=== PATIENT | male | born 1950 | race Caucasian/White ===

== ENCOUNTER 2020-10-09 06:00 | Outpatient (RCR) | payer MEDICARE, SELFPAY | END 2020-10-19 23:59 | disposition home or self-care (01) | LOC: GPT 06:00 | PROVIDERS: PCP Family Medicine; Referring Provider Internal Medicine; Visit Provider Internal Medicine | DX: S42.351D Displaced comminuted fracture of shaft of humerus, right arm, subsequent encounter for fracture with routine healing (principal); X58.XXXD Exposure to other specified factors, subsequent encounter | CPT/HCPCS: 97032; 97110; 97162; 97530 ==

== ENCOUNTER 2020-10-20 06:00 | Outpatient (RCR) | payer MEDICARE, SELFPAY | END 2020-11-19 23:59 | disposition home or self-care (01) | LOC: GPT 06:00 | PROVIDERS: PCP Family Medicine; Referring Provider Internal Medicine; Visit Provider Internal Medicine | DX: G83.21 Monoplegia of upper limb affecting right dominant side (principal) | CPT/HCPCS: 97032; 97110; 97140; 97164; 97530; G0283 ==

== ENCOUNTER 2020-10-21 06:00 | Outpatient (RCR) | payer MEDICARE, SELFPAY | END 2020-11-19 23:59 | disposition home or self-care (01) | LOC: GOT 06:00 | PROVIDERS: PCP Family Medicine; Referring Provider Internal Medicine; Visit Provider Internal Medicine | DX: G83.21 Monoplegia of upper limb affecting right dominant side (principal) | CPT/HCPCS: 97032; 97110; 97112; 97140; 97167; 97760 ==

== ENCOUNTER 2021-02-10 06:00 | Outpatient (RCR) | payer MEDICARE, SELFPAY | END 2021-02-18 23:59 | disposition home or self-care (01) | LOC: GPT 06:00 | PROVIDERS: PCP Family Medicine; Referring Provider Internal Medicine; Visit Provider Internal Medicine | DX: G83.21 Monoplegia of upper limb affecting right dominant side (principal) | CPT/HCPCS: 97110 ==

== ENCOUNTER 2021-02-11 06:00 | Outpatient (RCR) | payer MEDICARE, SELFPAY | END 2021-02-18 23:59 | disposition home or self-care (01) | LOC: GOT 06:00 | PROVIDERS: PCP Family Medicine; Visit Provider Orthopaedic Surgery | DX: G56.31 Lesion of radial nerve, right upper limb (principal); S62.102S Fracture of unspecified carpal bone, left wrist, sequela; S42.354D Nondisplaced comminuted fracture of shaft of humerus, right arm, subsequent encounter for fracture with routine healing | CPT/HCPCS: 97032; 97110; 97166 ==

== ENCOUNTER 2021-02-19 06:00 | Outpatient (RCR) | payer MEDICARE, SELFPAY | END 2021-03-21 23:59 | disposition home or self-care (01) | LOC: GOT 06:00 | PROVIDERS: PCP Family Medicine; Visit Provider Orthopaedic Surgery | DX: S62.102S Fracture of unspecified carpal bone, left wrist, sequela (principal); S42.354D Nondisplaced comminuted fracture of shaft of humerus, right arm, subsequent encounter for fracture with routine healing; G56.31 Lesion of radial nerve, right upper limb; X58.XXXS Exposure to other specified factors, sequela; X58.XXXD Exposure to other specified factors, subsequent encounter | CPT/HCPCS: 97110; 97140 ==

== ENCOUNTER 2021-02-19 06:00 | Outpatient (RCR) | payer MEDICARE, SELFPAY | END 2021-03-21 23:59 | disposition home or self-care (01) | LOC: GPT 06:00 | PROVIDERS: PCP Family Medicine; Referring Provider Internal Medicine; Visit Provider Internal Medicine | DX: G83.21 Monoplegia of upper limb affecting right dominant side (principal) | CPT/HCPCS: 97110; 97140 ==

== ENCOUNTER 2021-03-22 06:00 | Outpatient (RCR) | payer MEDICARE, SELFPAY | END 2021-04-21 23:59 | disposition home or self-care (01) | LOC: GOT 06:00 | PROVIDERS: PCP Family Medicine; Visit Provider Orthopaedic Surgery | DX: G56.31 Lesion of radial nerve, right upper limb (principal); S62.102D Fracture of unspecified carpal bone, left wrist, subsequent encounter for fracture with routine healing; S42.354D Nondisplaced comminuted fracture of shaft of humerus, right arm, subsequent encounter for fracture with routine healing; M25.511 Pain in right shoulder; G89.29 Other chronic pain; M75.01 Adhesive capsulitis of right shoulder | CPT/HCPCS: 97110; 97140 ==

== ENCOUNTER 2021-03-22 06:00 | Outpatient (RCR) | payer MEDICARE, SELFPAY | END 2021-04-21 23:59 | disposition home or self-care (01) | LOC: GPT 06:00 | PROVIDERS: PCP Family Medicine; Referring Provider Internal Medicine; Visit Provider Internal Medicine | DX: M25.511 Pain in right shoulder (principal); G89.29 Other chronic pain; M75.01 Adhesive capsulitis of right shoulder | CPT/HCPCS: 97110; 97140 ==

== ENCOUNTER 2021-04-22 06:00 | Outpatient (RCR) | payer MEDICARE, SELFPAY | END 2021-05-19 23:59 | disposition home or self-care (01) | LOC: GPT 06:00 | PROVIDERS: PCP Family Medicine; Visit Provider Internal Medicine | DX: M25.511 Pain in right shoulder (principal); G89.29 Other chronic pain; M75.01 Adhesive capsulitis of right shoulder | CPT/HCPCS: 97110; 97140 ==

== ENCOUNTER 2021-04-22 06:00 | Outpatient (RCR) | payer MEDICARE, SELFPAY | END 2021-05-19 23:59 | disposition home or self-care (01) | LOC: GOT 06:00 | PROVIDERS: PCP Family Medicine; Visit Provider Orthopaedic Surgery | DX: S62.102S Fracture of unspecified carpal bone, left wrist, sequela (principal); S42.354D Nondisplaced comminuted fracture of shaft of humerus, right arm, subsequent encounter for fracture with routine healing; G56.31 Lesion of radial nerve, right upper limb | CPT/HCPCS: 97035; 97110; 97140 ==

== ENCOUNTER 2021-05-20 06:00 | Outpatient (RCR) | payer MEDICARE, SELFPAY | END 2021-06-19 23:59 | disposition home or self-care (01) | LOC: GOT 06:00 | PROVIDERS: PCP Family Medicine; Visit Provider Orthopaedic Surgery | DX: S62.102D Fracture of unspecified carpal bone, left wrist, subsequent encounter for fracture with routine healing (principal); S42.354D Nondisplaced comminuted fracture of shaft of humerus, right arm, subsequent encounter for fracture with routine healing; G56.31 Lesion of radial nerve, right upper limb; X58.XXXD Exposure to other specified factors, subsequent encounter | CPT/HCPCS: 97032; 97110; 97140 ==

== ENCOUNTER 2021-05-20 06:00 | Outpatient (RCR) | payer MEDICARE, SELFPAY | END 2021-06-19 23:59 | disposition home or self-care (01) | LOC: GPT 06:00 | PROVIDERS: PCP Family Medicine; Visit Provider Internal Medicine | DX: M25.511 Pain in right shoulder (principal); G89.29 Other chronic pain; M75.01 Adhesive capsulitis of right shoulder | CPT/HCPCS: 97110; 97140 ==

== ENCOUNTER 2021-06-20 06:00 | Outpatient (RCR) | payer MEDICARE, SELFPAY | END 2021-06-24 23:59 | disposition home or self-care (01) | LOC: GOT 06:00 | PROVIDERS: PCP Family Medicine; Visit Provider Orthopaedic Surgery | DX: S62.102S Fracture of unspecified carpal bone, left wrist, sequela (principal); G56.31 Lesion of radial nerve, right upper limb; S42.354D Nondisplaced comminuted fracture of shaft of humerus, right arm, subsequent encounter for fracture with routine healing; X58.XXXD Exposure to other specified factors, subsequent encounter; X58.XXXS Exposure to other specified factors, sequela | CPT/HCPCS: 97110; 97140 ==

== ENCOUNTER 2024-02-25 06:00 | Outpatient (RCR) | payer MEDICARE, SELFPAY | END 2024-03-21 23:59 | disposition home or self-care (01) | LOC: GPT 06:00 | PROVIDERS: PCP Nurse Practitioner; Visit Provider Orthopaedic Surgery | DX: M54.31 Sciatica, right side (principal); M25.551 Pain in right hip | CPT/HCPCS: 97110; 97140; 97161; 97530 ==

== ENCOUNTER 2024-03-02 12:02 | Outpatient (CLI) | payer MEDICARE, SELFPAY ==
--- NOTE | 2024-03-02 12:11 | XRR_ITS ---
PROCEDURE INFORMATION: Exam: XR Lumbosacral Spine Exam date and time: 03/02/2024 12:18 PM Age: 73 years old Clinical indication: Injury or trauma; Blunt trauma (contusions or hematomas); Injury date: 1 month ago; Injury details: Sciatic nerve operation in 2020, fall x1 month sharp shooting pain down right leg; Prior surgery; Surgery date: 6+ months; Additional info: Lumbar back pain w/radiculopathy to rle TECHNIQUE: Imaging protocol: Radiologic exam of the lumbosacral spine. Views: 6 or more views. Including flexion and extension views. COMPARISON: No relevant prior studies available. FINDINGS: Bones/joints: Mild broad-based convex right lumbar scoliosis. Intact posterolateral/interbody fusion at L4-L5 intact posterolateral fusion at T12-L1. Spinal alignment is normal. Moderate to severe T12 compression fracture partially obscured by position. Question T11 compression fracture, also obscured. There are confluent anterior vertebral osteophytes above L2. There is moderate multilevel lumbar disc degeneration. There is moderate multilevel facet spondylosis. No acute fracture. No spondylolisthesis with flexion or extension. Mild narrowing of the posterior disc space and widening of the anterior disc space with extension at L5-S1. Soft tissues: Visible soft tissues are unremarkable. XR/XR lumbar spine 6V w f/e [id number] IMPRESSION: 1. Diffuse lumbar disc and facet degeneration with intact multilevel hardware fusion. 2. Age-indeterminate T11 and T12 compression fractures.
== END 2024-03-02 12:03 | disposition home or self-care (01) ==
LOC: RAD 12:06
PROVIDERS: PCP Nurse Practitioner; Visit Provider Nurse Practitioner
DX: M54.16 Radiculopathy, lumbar region (principal); M41.86 Other forms of scoliosis, lumbar region; M43.26 Fusion of spine, lumbar region; S22.080A Wedge compression fracture of T11-T12 vertebra, initial encounter for closed fracture; M25.78 Osteophyte, vertebrae; M51.360 Other intervertebral disc degeneration, lumbar region with discogenic back pain only; X58.XXXA Exposure to other specified factors, initial encounter
CPT/HCPCS: 72114

== ENCOUNTER 2024-03-10 09:41 | Outpatient (CLI) | payer MEDICARE, SELFPAY ==
--- NOTE | 2024-03-10 09:50 | MR_ITS ---
WS: [id number] MRI THORACIC SPINE noncontrast HISTORY: COMPRESSION FRACTURE OF T12 COMPARISON: None available. TECHNIQUE: Multiplanar sequences are performed in sagittal and axial planes. Long RIGHT curvature tho racic spine. Marked increase in thoracic kyphosis. Prior posterior lumbar fusion at T11-12. 50% anter ior wedging of T12. 20% anterior wedging of T11. There is mild anterior wedging also LEFT T8 and T9. No marrow edema is noted in the vertebral bodies. No acute compression fracture. There is a focal kyp hosis at the T11-12 level. T1-2: Mild foraminal narrowing. T2-3: Facet arthritis and mild foraminal narrowing. T3-4: Moderate bilateral facet arthritis and moderate foraminal stenosis. T4-5: Bilateral facet joint arthritis and foraminal stenosis. T5-6: Bilateral facet arthritis, RIGHT greater than LEFT. Moderate foraminal stenosis. T6-7: Bilateral foraminal stenosis and facet arthritis. T7-8: Severe bilateral foraminal stenosis. T8-9: Facet arthritis and severe bilateral foraminal stenosis. T9-10: Moderate bilateral foraminal stenosis and facet arthritis. T10-11: Moderate bilateral foraminal stenosis and facet arthritis. Small central disc protrusion. T11-12: Moderate central disc protrusion or osteophyte encroaching on the thecal sac. Near effacement of CSF. Bilateral foraminal stenosis. MR/MR thoracic spin wo con* [id number] IMPRESSION: 1. Prior posterior thoracic fusion at T11-12. Focal kyphosis at this level. 2. No new acute thoracic spine fracture. No marrow edema. 3. Long curvature RIGHT thoracic scoliosis and increase in thoracic kyphosis. 4. Multilevel facet joint arthropathy and foraminal stenoses as above.
--- NOTE | 2024-03-10 09:50 | MR_ITS ---
WS: [id number] MRI LUMBAR SPINE NONCONTRAST HISTORY: LUMBAR BACK PAIN WITH RADICULOPATHY AFFECTING RT LE COMPARISON: Radiograph 03/02/2024 TECHNIQUE: Sagittal and axial multisequence imaging is submitted. Scoliosis and mild straightening of the normal lumbar spine. Posterior lumbar fusion at L4-5 with int erbody spacer. Large Schmorl's node at L3. There is a small amount of edema at the base of the Schmor l's nodes which may be an acute fracture. No additional marrow changes. Disc spaces are all narrowed and desiccated. Conus terminates normally at L1-2 disc level. L1-L2: Mild disc bulging with a central disc protrusion. Very minimal subarticular recess narrowing. L2-L3: Diffuse asymmetric disc bulging. Central disc protrusion. LEFT foraminal broad-based disc prot rusion. Mild central stenosis with subarticular recess encroachment, greater on the LEFT. Mild bilate ral foraminal stenosis, LEFT greater than RIGHT. L3-L4: Diffuse annular disc bulging. Central disc protrusion. Broad-based disc bulging to the LEFT. S maller disc protrusion on the RIGHT. Moderate to severe central with bilateral subarticular recess an d foraminal stenosis. There is encroachment upon the L3 and L4 nerve roots. L4-L5: Annular disc bulging with disc contacting the traversing L5 nerve roots. Moderate to severe RI GHT and moderate LEFT foraminal stenosis. LEFT hemilaminectomy defect. Mild clumping of the nerve tristan ts in the thecal sac. L5-S1: Diffuse annular disc bulging. Abnormal signal which is probably a lobulated disc protrusion ex tending into the RIGHT subarticular recess and displaces the RIGHT S1 nerve root and the thecal sac. There is significant deformity of the thecal sac. The RIGHT S1 nerve root is also slightly larger aditi n the LEFT. Severe bilateral foraminal and subarticular recess stenosis. MR/MR lumbar spine wo con* [id number] IMPRESSION: 1. Status post prior posterior lumbar fusion at L4-5 with interbody spacer. 2. L5-S1: Lobulated large disc protrusion extending into the RIGHT subarticula r recess. Severe bilateral foraminal and subarticular recess stenosis. Central stenosis with deformity of the thecal sac by extruded disc. 3. L4-5: Moderate to severe RIGHT and moderate LEFT foraminal stenosis. LEFT h emilaminectomy defect. 4. L3-4: Moderate to severe central with bilateral subarticular recess and for aminal stenosis. Disc encroachment upon the L3 and L4 nerve roots. 5. L2-3: Mild central stenosis with subarticular recess encroachment and mild bilateral foraminal stenosis.
== END 2024-03-10 09:42 | disposition home or self-care (01) ==
PROVIDERS: PCP Nurse Practitioner; Visit Provider Nurse Practitioner
DX: M54.16 Radiculopathy, lumbar region (principal); M51.362 Other intervertebral disc degeneration, lumbar region with discogenic back pain and lower extremity pain; S22.080A Wedge compression fracture of T11-T12 vertebra, initial encounter for closed fracture; M46.94 Unspecified inflammatory spondylopathy, thoracic region; M99.62 Osseous and subluxation stenosis of intervertebral foramina of thoracic region; M51.24 Other intervertebral disc displacement, thoracic region; M43.24 Fusion of spine, thoracic region; M41.34 Thoracogenic scoliosis, thoracic region; X58.XXXA Exposure to other specified factors, initial encounter
CPT/HCPCS: 72146; 72148

== ENCOUNTER 2024-03-22 06:00 | Outpatient (RCR) | payer MEDICARE, SELFPAY | END 2024-04-21 23:59 | disposition home or self-care (01) | LOC: GPT 06:00 | PROVIDERS: PCP Nurse Practitioner; Visit Provider Orthopaedic Surgery | DX: M54.31 Sciatica, right side (principal); M25.551 Pain in right hip | CPT/HCPCS: 97110; 97140; 97530 ==

== ENCOUNTER 2024-03-30 11:54 | Outpatient (CLI) | payer MEDICARE, SELFPAY ==
--- NOTE | 2024-03-30 11:58 | XR_ITS ---
WS: [id number] Right elbow, 3 views, 03/30/2024 Clinical Data: closed fracture of elbow Comparison: None. Findings: There is an old impacted fracture of the distal right humerus. The fracture has with abundant periost eal new bone formation and bone fragments. The articulation between the radial head, olecranon and di stal humerus is intact. There is a vertical line on the radial head which could represent an old or n ew undisplaced fracture. There is a lateral plate on the mid and distal humerus fixed with screws and the proximal portion of the humerus is not imaged. XR/XR elbow RT min 3V* [id number] Impression: 1. Questionable undisplaced fracture of the radial head. 2. Old fracture of the distal right humerus. 3. Probable internal fixation of proximal right humeral fracture.
== END 2024-03-30 11:55 | disposition home or self-care (01) ==
LOC: RAD 11:55
PROVIDERS: PCP Nurse Practitioner; Visit Provider Nurse Practitioner
DX: S42.401A Unspecified fracture of lower end of right humerus, initial encounter for closed fracture (principal); X58.XXXA Exposure to other specified factors, initial encounter; Z87.81 Personal history of (healed) traumatic fracture; R93.6 Abnormal findings on diagnostic imaging of limbs; Z98.890 Other specified postprocedural states
CPT/HCPCS: 73080

== ENCOUNTER 2024-04-22 06:30 | Outpatient (RCR) | payer MEDICARE, SELFPAY | END 2024-05-19 23:59 | disposition home or self-care (01) | LOC: GPT 06:30 | PROVIDERS: PCP Nurse Practitioner; Visit Provider Orthopaedic Surgery | DX: M54.31 Sciatica, right side (principal); M25.551 Pain in right hip | CPT/HCPCS: 97110; 97164 ==

== ENCOUNTER 2024-05-04 13:52 | Outpatient (CLI) | payer MEDICARE, SELFPAY ==
--- NOTE | 2024-05-04 13:58 | CTR_ITS ---
PROCEDURE INFORMATION: Exam: CT Right Upper Extremity Without Contrast, Elbow Exam date and time: 05/04/2024 2:13 PM Age: 74 years old Clinical indication: Prior surgery; Surgery date: 6+ months; Surgery type: RT humerus; Right elbow pain, FX at distal end of right humerus. Fell last summer; Additional info: Right elbow pain, FX of distal end of right humerus TECHNIQUE: Imaging protocol: Computed tomography of the right upper extremity without contrast. Exam focused on the elbow. Radiation optimization: All CT scans at this facility use at least one of these dose optimization techniques: automated exposure control; mA and/or kV adjustment per patient size (includes targeted exams where dose is matched to clinical indication); or iterative reconstruction. COMPARISON: CR XR elbow RT min 3V* [id number] 03/30/2024 12:11 PM RADIATION DOSE METRICS: Total DLP (mGy-cm): 763.33 FINDINGS: Bones/joints: There are postoperative changes involving the humerus. There is a lateral sideplate with numerous screws. There is an old-appearing supracondylar fracture. Fracture margins are sclerotic and appear to be chronic. There is minimal bony bridging across the fracture site posteriorly noted on the sagittal images. There are multiple smaller adjacent fracture fragments versus heterotopic ossification. No fractures are noted involving the proximal radius or proximal ulna. The humeral ulnar and radiocapitellar joints appear to be intact. No large osteophytes are appreciated. Overall, bony mineralization is decreased. There is a joint effusion displacing the anterior and posterior elbow fat pads. Soft tissues: No acute soft tissue abnormalities are noted. CT/CT elbow RT wo con* [id number] IMPRESSION: 1. Postoperative changes involving the humerus. 2. Old supracondylar fracture with very minimal bony bridging posteriorly as seen on the sagittal images.
== END 2024-05-04 13:53 | disposition home or self-care (01) ==
PROVIDERS: PCP Nurse Practitioner; Visit Provider Orthopaedic Surgery
DX: M25.521 Pain in right elbow (principal); S42.401A Unspecified fracture of lower end of right humerus, initial encounter for closed fracture; X58.XXXA Exposure to other specified factors, initial encounter; Z98.890 Other specified postprocedural states; R93.6 Abnormal findings on diagnostic imaging of limbs
CPT/HCPCS: 73200

== ENCOUNTER 2024-05-20 06:00 | Outpatient (RCR) | payer MEDICARE, SELFPAY | END 2024-06-19 23:59 | disposition home or self-care (01) | LOC: GPT 06:00 | PROVIDERS: PCP Nurse Practitioner; Visit Provider Orthopaedic Surgery | DX: M54.31 Sciatica, right side (principal); M25.551 Pain in right hip | CPT/HCPCS: 97110; 97140 ==